=== PATIENT | female | born 1950 | race Caucasian/White ===

== ENCOUNTER 2019-03-08 07:39 | Day surgery (SDC) | payer OTHER ==
[~2019-03-08] VITALS: Ht 167.6 cm; Wt 108.9 kg
[~2019-03-08 07:39] MED LIST: CEFAZOLIN SOD 2 GM in D5W 50 ML IV ONE
[2019-03-08] MEDS ORDERED: KETOROLAC TROMETHAMINE 30 MG VIAL IVP PRN (08:30)
[2019-03-08] MEDS ORDERED: fentaNYL CITRATE/PF 100 MCG/2 ML AMP IVP PRN (08:30)
[2019-03-08] MEDS ORDERED: ONDANSETRON HCL 4 MG/2 ML VIAL IVP PRN (08:30)
[2019-03-08] MEDS ORDERED: ROCURONIUM BROMIDE 10 MG/ML (ZEMURON) ONE (10:45)
[2019-03-08] MEDS ORDERED: KETOROLAC TROMETHAMINE 30 MG VIAL ONE (10:45)
[2019-03-08] MEDS ORDERED: ONDANSETRON HCL 4 MG/2 ML VIAL IM PRN (10:45)
[2019-03-08] MEDS ORDERED: CEFAZOLIN 2 GM IVPB PREMIX 50 ML IV ONE (10:45)
[2019-03-08] MEDS ORDERED: MIDAZOLAM HCL 5 MG/ML VIAL (VERSED) IV ONE (10:45)
[2019-03-08] MEDS ORDERED: ONDANSETRON HCL 4 MG/2 ML VIAL ONE (10:45)
[2019-03-08] MEDS ORDERED: SEVOFLURANE 15 MIN GAS INH ONE (10:45)
[2019-03-08] MEDS ORDERED: BUPIVACAINE /EPINEPHRINE/PF 0.25% 30 ML VIAL INJ ONE (10:45)
[2019-03-08] MEDS ORDERED: NS 1000 ML IV.SOLN IV ONE (10:45)
[2019-03-08] MEDS ORDERED: PROPOFOL 200MG/ 20ML VIAL (DIPRIVAN) IV ONE (10:45)
[2019-03-08] MEDS ORDERED: NS IRRIG SOLN 1000 ML IR ONE (10:45)
[2019-03-08] MEDS ORDERED: fentaNYL CITRATE/PF 100 MCG/2 ML AMP ONE ×2 (10:45→10:59)
[2019-03-08] MEDS: fentaNYL CITRATE/PF 100 MCG/2 ML AMP IVP PRN ×2 (10:49→10:59)
[2019-03-08] MEDS ORDERED: HYDROcodone/ACETAMIN 5-325 MG TAB (NORCO/ VICODIN) PO PRN (11:30)
[2019-03-08] MEDS ORDERED: OXYCODONE/ACETAMINOPHEN 5-325 TABLET PO PRN (11:30)
[2019-03-08 11:39] VITALS: BP_SYST 107
[2019-03-08] MEDS ORDERED: HYDROcodone/ACETAMIN 5-325 MG TAB (NORCO/ VICODIN) ONE (12:27)
[2019-03-08] MEDS ORDERED: SIMETHICONE 80 MG TAB.CHEW PO SCH (13:00)
== END 2019-03-08 15:20 | disposition home or self-care (01) ==
LOC: SDS 07:39 → SMU 07:39 → SDS 15:20
PROVIDERS: ATTEND Specialist
DX: D27.1 Benign neoplasm of left ovary (principal); N84.0 Polyp of corpus uteri; N71.1 Chronic inflammatory disease of uterus; K66.0 Peritoneal adhesions (postprocedural) (postinfection); E66.01 Morbid (severe) obesity due to excess calories; J45.909 Unspecified asthma, uncomplicated; Z90.49 Acquired absence of other specified parts of digestive tract; Z79.899 Other long term (current) drug therapy; Z79.82 Long term (current) use of aspirin
CPT/HCPCS: 58558; 58661; 88305; C1727; C1782; J0690 ×2; J1885; J2250; J2405; J2704; J3010; J3490; J7030; J7060; J7120